=== PATIENT | female | born 1975 | race Asian ===

== ENCOUNTER 2018-05-22 09:51 | Emergency (ER) | payer OTHER ==
[~2018-05-22] VITALS: Ht 167.6 cm; Wt 70.3 kg
[2018-05-22 12:18] VITALS: BP 108/64; TEMP 97.8
== END 2018-05-22 12:23 | disposition home or self-care (01) ==
LOC: ED 09:51
PROC: 2W3CX1Z Immobilization of Right Lower Arm using Splint (ICD-10-PCS; principal; 2018-05-22)
DX: S00.93XA Contusion of unspecified part of head, initial encounter (principal); S63.501A Unspecified sprain of right wrist, initial encounter; S83.91XA Sprain of unspecified site of right knee, initial encounter; W01.198A Fall on same level from slipping, tripping and stumbling with subsequent striking against other object, initial encounter; Y92.511 Restaurant or cafe as the place of occurrence of the external cause
CPT/HCPCS: 81025; 99283; J1885

== ENCOUNTER 2018-05-25 09:47 | Outpatient (CLI) | payer OTHER | END 2018-05-25 23:16 | disposition home or self-care (01) | LOC: RAD 09:47 | DX: R76.11 Nonspecific reaction to tuberculin skin test without active tuberculosis (principal) ==

== ENCOUNTER 2020-09-07 04:45 | Emergency (ER) | payer OTHER ==
[~2020-09-07] VITALS: Ht 167.6 cm; Wt 70.3 kg
[2020-09-07 04:45] VITALS: TEMP 98.3
[2020-09-07 05:26] LABS: PLATELET COUNT 302 K/uL (152-353)
[2020-09-07 05:30] LABS: POTASSIUM 3.2 mmol/L (3.6-5.2); SODIUM 140 mmol/L (136-145)
[2020-09-07 08:59] VITALS: BP 118/78
== END 2020-09-07 09:00 | disposition home or self-care (01) ==
LOC: ED 04:47
PROVIDERS: Family Medicine
DX: J45.901 Unspecified asthma with (acute) exacerbation (principal); R07.89 Other chest pain; Z20.822 Contact with and (suspected) exposure to COVID-19; F17.210 Nicotine dependence, cigarettes, uncomplicated
CPT/HCPCS: 80053; 82550; 84484; 85027; 87635; 93005; 94664; 96365; 96375; 99284; J1956; J2405; J2930; U0003

== ENCOUNTER 2020-10-30 01:34 | Emergency (ER) | payer OTHER ==
[~2020-10-30] VITALS: Ht 167.6 cm; Wt 68.0 kg
[2020-10-30 03:00] VITALS: BP 153/91; TEMP 96.3
== END 2020-10-30 03:00 | disposition home or self-care (01) ==
LOC: ED 01:34
DX: J45.909 Unspecified asthma, uncomplicated (principal)
CPT/HCPCS: 94664; 99283

== ENCOUNTER 2020-11-10 23:42 | Emergency (ER) | payer OTHER ==
[~2020-11-10] VITALS: Ht 167.6 cm; Wt 68.0 kg
[2020-11-11 00:54] VITALS: BP 106/62; TEMP 98.3
== END 2020-11-11 00:57 | disposition home or self-care (01) ==
LOC: ED 23:42
DX: J45.909 Unspecified asthma, uncomplicated (principal); F17.210 Nicotine dependence, cigarettes, uncomplicated
CPT/HCPCS: 93005; 94640; 94664; 96374; 99282; 99284